=== PATIENT | male | born 1930 | race Caucasian/White ===

== ENCOUNTER 2018-05-09 13:59 | Emergency (ER) | payer MEDICARE, BC ==
[2015-01-25 15:56] VITALS: Wt 74.8 kg
[~2018-05-09 13:59] MED LIST: ACE3 PO; ASPI-764 PO; HYDR-385 PO; LISI-362 PO; TRAM-420 PO
--- NOTE | 2018-05-09 14:13 | ER Report ---
History and Physical Time Seen By MD: 14:11 HPI/ROS CHIEF COMPLAINT: Passing out HISTORY OF PRESENT ILLNESS: This is an 87-year-old male who presents to the emergency department for 2 syncopal episodes today. Patient states that around 8:00 this morning while he was working in his shop, he felt a little lightheaded and dizzy, laid down on the floor states he "passed out while laying on the floor" then came to shortly after and a backup felt okay and went back to working in his wood shop. Roughly an hour later was inside drinking some coffee and had another syncopal episode. Did not fall. Was sitting in his chair. No seizure activity. No headaches. No nausea or vomiting. No fevers or chills. No chest pain or shortness of breath. No other complaints. No palpitations. REVIEW OF SYSTEMS: Constitutional: No fever, no chills. Eyes: No discharge. ENT: No sore throat. Cardiovascular: No chest pain, no palpitations. Respiratory: No cough, no shortness of breath. Gastrointestinal: No abdominal pain, no vomiting. Genitourinary: No hematuria. Musculoskeletal: No back pain. Skin: No rashes. Neurological: As above. Allergies: Coded Allergies: morphine (Unverified Allergy, Severe, RASH AND PASSED OUT, "THEY HAD TO REVIVE ME", 02/27/15) Home Meds Active Scripts Acetaminophen/Codeine (TYLENOL #3 (OR EQUIV)) 1 Ea Tab, 1-2 EA PO Q4H PRN for PAIN, #30 TAB Prov:MARION ABARCA MD 02/28/15 Tramadol Hcl (TRAMADOL HCL) 50 Mg Tablet, 50-100 MG PO Q4-6H for PAIN, #30 MG TAKE ONE TO TWO TABLETS BY MOUTH EVERY FOUR TO SIX HOURS NEEDED Prov:DANNA BERNAL MD 02/27/15 Aspirin (ASPIRIN EC) 325 Mg Tabec, 325 MG PO QDAY, #30 TAB Prov:VJ JUAN MD 01/27/15 Past Medical/Surgical History The patient has a past medical and surgical history of hypertension, pancreatitis, cholecystectomy, arthritis, total left knee, prosthetic left eye, eye surgery. Reviewed Nurses Notes: Yes Hx Smoking: No Smoking Status: Never Smoker Exposure to Second Hand Smoke?: No Hx Substance Use Disorder: No Hx Alcohol Use: No Constitutional Vital Sign - Last 24 Hours 05/09/18 05/09/18 05/09/18 05/09/18 14:10 14:40 14:45 15:06 Temp 98.2 Pulse 100 67 95 96 Resp 18 B/P (MAP) 167/108 156/98 (117) 148/98 (115) 155/99 (117) Pulse Ox 92 O2 Delivery Room Air 05/09/18 05/09/18 15:15 16:15 Pulse 79 77 Resp 18 Pulse Ox 90 90 Physical Exam General Appearance: The patient is alert, has no immediate need for airway protection and no signs of toxicity. Eyes: Pupils equal and round no pallor or injection. EOM intact to right eye, prosthesis to left eye. No nystagmus this to right eye. ENT, Mouth: Mucous membranes are moist. Respiratory: There are no retractions, lungs are clear to auscultation. Cardiovascular: Regular rate and rhythm, no murmurs, clicks or rubs. Gastrointestinal: Abdomen is soft and non tender, no masses, bowel sounds normal. Neurological: Alert and oriented 4. Moving all extremities. Following all commands. No focal neuro deficits. Skin: Warm and dry, no rashes. Musculoskeletal: Neck is supple non tender. Extremities are nontender, nonswollen and have full range of motion. DIFFERENTIAL DIAGNOSIS: After history and physical exam differential diagnosis was considered for syncope including but not limited to vasovagal syncope, arrhythmia, dehydration, and blood loss. Medical Decision Making Data Points Result Diagram: 05/09/18 1426 05/09/18 1426 Laboratory Hematology Test 05/09/18 14:26 05/09/18 14:34 Red Blood Count 5.86 M/uL (4.00-5.60) Mean Corpuscular Volume 88.4 fL (80.0-96.0) Mean Corpuscular Hemoglobin 29.9 pg (26.0-33.0) Mean Corpuscular Hemoglobin Concent 33.8 g/dL (32.0-36.0) Red Cell Distribution Width 14.0 % (11.5-14.5) Mean Platelet Volume 8.7 fL (7.2-11.1) Neutrophils (%) (Auto) 84.7 % (39.4-72.5) Lymphocytes (%) (Auto) 8.8 % (17.6-49.6) Monocytes (%) (Auto) 5.5 % (4.1-12.4) Eosinophils (%) (Auto) 0.5 % (0.4-6.7) Basophils (%) (Auto) 0.5 % (0.3-1.4) Nucleated RBC Relative Count (auto) 0.1 /100WBC Neutrophils # (Auto) 7.4 K/uL (2.0-7.4) Lymphocytes # (Auto) 0.8 K/uL (1.3-3.6) Monocytes # (Auto) 0.5 K/uL (0.3-1.0) Eosinophils # (Auto) 0.0 K/uL (0.0-0.5) Basophils # (Auto) 0.0 K/uL (0.0-0.1) Nucleated RBC Absolute Count (auto) 0.01 K/uL Sodium Level 137 mmol/L (137-145) Potassium Level 4.1 mmol/L (3.5-5.0) Chloride Level 104 mmol/L (98-107) Carbon Dioxide Level 26 mmol/L (22-30) Blood Urea Nitrogen 21 mg/dl (9-21) Creatinine 1.30 mg/dl (0.66-1.25) Glomerular Filtration Rate Calc 52.5 Random Glucose 174 mg/dl (75-110) Calcium Level 9.4 mg/dl (8.4-10.2) Total Bilirubin 0.6 mg/dl (0.2-1.3) Aspartate Amino Transf (AST/SGOT) 22 U/L (0-35) Alanine Aminotransferase (ALT/SGPT) 23 U/L (0-56) Alkaline Phosphatase 81 U/L (0-126) Troponin I < 0.012 ng/ml Total Protein 7.3 g/dl (6.3-8.2) Albumin 3.9 g/dl (3.5-5.0) Urine Color Straw Urine Clarity Clear Urine pH 6.0 pH (4.8-9.5) Urine Specific [place] 1.006 Urine Protein Negative mg/dL (NEGATIVE) Urine Glucose (UA) Negative mg/dL (NEGATIVE) Urine Ketones Negative mg/dL (NEGATIVE) Urine Blood Negative (NEGATIVE) Urine Nitrite Negative (NEGATIVE) Urine Bilirubin Negative (NEGATIVE) Urine Urobilinogen Negative mg/dL (0.2-1.9) Urine Leukocyte Esterase Negative (NEGATIVE) Urine RBC None /HPF (0-2/HPF) Urine WBC <1 /HPF (0-5/HPF) Urine Squamous Epithelial Cells None /LPF (</=FEW) Urine Bacteria Negative /HPF (NONE-FEW) Urine Mucus None /HPF (NONE-FEW) Chemistry Test 05/09/18 14:26 05/09/18 14:34 White Blood Count 8.8 k/uL (4.5-11.0) Red Blood Count 5.86 M/uL (4.00-5.60) Hemoglobin 17.5 g/dL (14.0-18.0) Hematocrit 51.9 % (42.0-52.0) Mean Corpuscular Volume 88.4 fL (80.0-96.0) Mean Corpuscular Hemoglobin 29.9 pg (26.0-33.0) Mean Corpuscular Hemoglobin Concent 33.8 g/dL (32.0-36.0) Red Cell Distribution Width 14.0 % (11.5-14.5) Platelet Count 193 K/uL (150-450) Mean Platelet Volume 8.7 fL (7.2-11.1) Neutrophils (%) (Auto) 84.7 % (39.4-72.5) Lymphocytes (%) (Auto) 8.8 % (17.6-49.6) Monocytes (%) (Auto) 5.5 % (4.1-12.4) Eosinophils (%) (Auto) 0.5 % (0.4-6.7) Basophils (%) (Auto) 0.5 % (0.3-1.4) Nucleated RBC Relative Count (auto) 0.1 /100WBC Neutrophils # (Auto) 7.4 K/uL (2.0-7.4) Lymphocytes # (Auto) 0.8 K/uL (1.3-3.6) Monocytes # (Auto) 0.5 K/uL (0.3-1.0) Eosinophils # (Auto) 0.0 K/uL (0.0-0.5) Basophils # (Auto) 0.0 K/uL (0.0-0.1) Nucleated RBC Absolute Count (auto) 0.01 K/uL Glomerular Filtration Rate Calc 52.5 Calcium Level 9.4 mg/dl (8.4-10.2) Total Bilirubin 0.6 mg/dl (0.2-1.3) Aspartate Amino Transf (AST/SGOT) 22 U/L (0-35) Alanine Aminotransferase (ALT/SGPT) 23 U/L (0-56) Alkaline Phosphatase 81 U/L (0-126) Troponin I < 0.012 ng/ml Total Protein 7.3 g/dl (6.3-8.2) Albumin 3.9 g/dl (3.5-5.0) Urine Color Straw Urine Clarity Clear Urine pH 6.0 pH (4.8-9.5) Urine Specific [place] 1.006 Urine Protein Negative mg/dL (NEGATIVE) Urine Glucose (UA) Negative mg/dL (NEGATIVE) Urine Ketones Negative mg/dL (NEGATIVE) Urine Blood Negative (NEGATIVE) Urine Nitrite Negative (NEGATIVE) Urine Bilirubin Negative (NEGATIVE) Urine Urobilinogen Negative mg/dL (0.2-1.9) Urine Leukocyte Esterase Negative (NEGATIVE) Urine RBC None /HPF (0-2/HPF) Urine WBC <1 /HPF (0-5/HPF) Urine Squamous Epithelial Cells None /LPF (</=FEW) Urine Bacteria Negative /HPF (NONE-FEW) Urine Mucus None /HPF (NONE-FEW) Urinalysis Test 05/09/18 14:34 Urine Color Straw Urine Clarity Clear Urine pH 6.0 pH (4.8-9.5) Urine Specific [place] 1.006 Urine Protein Negative mg/dL (NEGATIVE) Urine Glucose (UA) Negative mg/dL (NEGATIVE) Urine Ketones Negative mg/dL (NEGATIVE) Urine Blood Negative (NEGATIVE) Urine Nitrite Negative (NEGATIVE) Urine Bilirubin Negative (NEGATIVE) Urine Urobilinogen Negative mg/dL (0.2-1.9) Urine Leukocyte Esterase Negative (NEGATIVE) Urine RBC None /HPF (0-2/HPF) Urine WBC <1 /HPF (0-5/HPF) Urine Squamous Epithelial Cells None /LPF (</=FEW) Urine Bacteria Negative /HPF (NONE-FEW) Urine Mucus None /HPF (NONE-FEW) EKG/Imaging EKG Interpretation 12 lead EKG: Tired EKG 1440. Rhythm: Sinus rhythm, ventricular rate 84 bpm. Sinus arrhythmia. [place]: normal QRS: normal ST segments: No ST depression or elevation identified. Incomplete right bundle branch block, inverted T-wave in V2, V3. No previous EKGs for comparison. Imaging 2 VIEWS CHEST INDICATION: Syncope. COMPARISON: 01/19/2015. FINDINGS: Cardiomediastinal silhouette and pulmonary vessels within normal limits. There is no focal infiltrate or lobar consolidation. There is no pneumothorax or pleural effusion. No nodule. Upper abdomen is unremarkable. Small surgical clips seen in the right upper abdomen. No acute bony abnormality. Stable mild compression of a vertebral body at the thoracolumbar junction. IMPRESSION: 1. No acute cardiopulmonary process. Report Dictated By: Narciso Nolasco at 05/09/2018 3:07 PM Report E-Signed By: Narciso Nolasco at 05/09/2018 3:08 PM [id number] CT Head without contrast Indication: Syncope possible hit head. Comparison: None available Technique: Axial CT images were obtained through the brain from the skull base to the vertex without administration of IV contrast. Reformatted coronal and sagittal images were also obtained. One of the following dose optimization techniques was utilized in the performance of this exam: automated exposure control; adjustment of the mA and/or kV according to the patient's size; or use of an iterative reconstruction technique. Specific details can be referenced in the facility's radiology CT exam operational policy. Findings: No evidence of mass, mass effect, or midline shift. No acute intracranial hemorrhage or acute territorial infarction. No extra-axial fluid collection or hydrocephalus. Age-related cerebral atrophy. Periventricular white matter ischemic changes consistent small vessel disease. Lira/white matter differentiation appears normal. Mild bilateral internal carotid artery calcifications. Bony structures show no fractures or lesions. Left globe prosthesis is present. The visualized paranasal sinuses and mastoid air cells are clear. IMPRESSION: 1. Senescent changes without acute abnormality. Report Dictated By: Narciso Nolasco at 05/09/2018 3:56 PM Report E-Signed By: Narciso Nolasco at 05/09/2018 4:01 PM WSN:[id number] ED Course/Re-evaluation Clinical Indication for ER IV: Hydration, IV Access ED Course The patient was admitted to room. History and physical obtained. Differential diagnoses were considered. An IV was started. A CBC, CMP, troponin were obtained. A 500 mL normal saline bolus was given. Lab studies unremarkable. Marika HUERTAS I did review the results with the patient and his family. A two-view chest x-ray was negative for any acute cardiopulmonary process. A head CT was negative for any intracranial abnormalities. Right shoulder was negative for any acute abnormalities. I reviewed all these imaging results with the patient. I did tell the patient I don't have a clear examination is why he is having the syncopal episodes, I did tell him I was concerned that he had 2 within such a short period of time, therefore I did place patient on a Holter monitor recommended following up with his primary care provider within 5 days for reevaluation. Patient expressed understanding and was discharged home. Patient has no other questions or concerns. A shunt had no syncopal events while in the emergency department. Patient states he felt "okay" during his visit. Patient was asymptomatic during orthostatic vital signs. 05/09/2018 2:55:09 pm , positive for orthostatic vital signs, asymptomatic during assessment and vitals. 05/09/2018 3:27:06 pm going to review the results with the patient, after more lengthy discussion, he states that he didn't think that he hit his head however he is not entirely sure, his [id number] thought that he did and he does have a very small contusion to his forehead. I did recommend a CT of the brain, the patient has agreed. Patient also states that he injured his right shoulder about 2 months ago and has had chronic pain since then we will x-ray the right shoulder as well. Decision to Disposition Date: May 09, 2018 Decision to Disposition Time: 16:20 Depart Departure Latest Vital Signs Vital Signs Date Time Temp Pulse Resp B/P (MAP) Pulse Ox O2 Delivery O2 Flow Rate FiO2 05/09/18 16:15 77 90 05/09/18 15:15 18 05/09/18 15:06 155/99 (117) 05/09/18 14:10 98.2 Room Air Impression: Primary Impression: Syncope Condition: Improved Disposition: HOME OR SELF-CARE Referrals: POLY GARRIDO MD (PCP) 5 Days Patient Instructions: Exercises for Shoulder Abduction and Adduction (ED), Exercises for Shoulder Flexion and Extension (ED), Near Syncope (ED), Syncope (ED) Additional Instructions: Your laboratory studies and urine look good today. EKG looks okay. Chest x-ray, shoulder and head CT looked okay. Wear the Holter monitor for 48 hours, return it as indicated by a cardiopulmonary. The results will go to Dr. Mabry, please call and follow-up with Dr. Laura early this coming week for reevaluation and Holter monitor results. Be sure to drink plenty of water. Get plenty of rest. Return to the emergency department for any other concerns or worsening symptoms. Problem Qualifiers Primary Impression: Syncope Syncope type: unspecified Qualified Codes: R55 - Syncope and collapse KIM SANCHEZ TRIAGE REGISTERED NURSE-BC May 09, 2018 14:13
[2018-05-09] MEDS ORDERED: NS(*) 0.9% 500 ML BAG 500 ML IV ONE (14:31)
[2018-05-09 14:43] LABS: PLATELET COUNT, AUTOMATED 193 K/uL (150-450)
--- NOTE | 2018-05-09 14:48 | EKG ---
FACILITY: [facility] - [place] PATIENT NAME: TELMA ANDRE : [id number] MR: [id number] V: [id number] EXAM DATE: ORDERING PHYSICIAN: KIM SANCHEZ TECHNOLOGIST: RICKEY Ibrahim Reason : SYNCOPE Blood Pressure : / mmHG Vent. Rate : 084 BPM Atrial Rate : 084 BPM P-R Int : 176 ms QRS Dur : 106 ms QT Int : 366 ms P-R-T Axes : 022 -55 025 degrees QTc Int : 432 ms Sinus rhythm with marked sinus arrhythmia with premature supraventricular complexes Incomplete right bundle branch block Left anterior fascicular block Minimal voltage criteria for LVH, may be normal variant ST and T wave abnormality, consider anterior ischemia Abnormal ECG No previous ECGs available Confirmed by Robby Watts ([id number]) on 05/09/2018 4:07:05 PM Referred By: Confirmed By:Robby Cox
[2018-05-09 15:06] VITALS: BP 155/99
--- NOTE | 2018-05-09 15:12 | RADIOLOGY IMAGING REPORT ---
FACILITY: [facility] - [place] PATIENT NAME: Franc Dove : 1930 MR: [id number] V: [id number] EXAM DATE: ORDERING PHYSICIAN: KIM SANCHEZ TECHNOLOGIST: Location: [facility] Patient: Franc Dove : 1930 Visit/Account:[id number] Date of Sevice: 05/09/2018 2 VIEWS CHEST INDICATION: Syncope. COMPARISON: 01/19/2015. FINDINGS: Cardiomediastinal silhouette and pulmonary vessels within normal limits. There is no focal infiltrate or lobar consolidation. There is no pneumothorax or pleural effusion. No nodule. Upper abdomen is unremarkable. Small surgical clips seen in the right upper abdomen. No acute bony ab normality. Stable mild compression of a vertebral body at the thoracolumbar junction. IMPRESSION: 1. No acute cardiopulmonary process. Report Dictated By: Narciso Nolasco at 05/09/2018 3:07 PM Report E-Signed By: Narciso Nolasco at 05/09/2018 3:08 PM WSN:[id number]
--- NOTE | 2018-05-09 16:04 | RADIOLOGY IMAGING REPORT ---
FACILITY: [facility] - [place] PATIENT NAME: Franc Dove : 1930 MR: [id number] V: [id number] EXAM DATE: ORDERING PHYSICIAN: KIM SANCHEZ TECHNOLOGIST: [place] [facility] [place] Patient: Franc Dove : 1930 Visit/Account:[id number] Date of Sevice: 05/09/2018 CT Head without contrast Indication: Syncope possible hit head. Comparison: None available Technique: Axial CT images were obtained through the brain from the skull base to the vertex without administration of IV contrast. Reformatted coronal and sagittal images were also obtained. One of the following dose optimization techniques was utilized in the performance of this exam: autom ated exposure control; adjustment of the mA and/or kV according to the patient's size; or use of an i terative reconstruction technique. Specific details can be referenced in the facility's radiology CT exam operational policy. Findings: No evidence of mass, mass effect, or midline shift. No acute intracranial hemorrhage or acute territorial infarction. No extra-axial fluid collection or hydrocephalus. Age-related cerebral atrophy. Periventricular white matter ischemic changes consistent small vessel disease. Lira/white matter differentiation appears n ormal. Mild bilateral internal carotid artery calcifications. Bony structures show no fractures or lesions. Left globe prosthesis is present. The visualized paranasal sinuses and mastoid air cells are clear. IMPRESSION: 1. Senescent changes without acute abnormality. Report Dictated By: Narciso Nolasco at 05/09/2018 3:56 PM Report E-Signed By: Narciso Nolasco at 05/09/2018 4:01 PM WSN:[id number]
--- NOTE | 2018-05-09 16:11 | RADIOLOGY IMAGING REPORT ---
FACILITY: [facility] PATIENT NAME: Franc Dove : 1930 MR: [id number] V: [id number] EXAM DATE: ORDERING PHYSICIAN: KIM SANCHEZ TECHNOLOGIST: Location: [facility] - [place] Patient: Franc Dove : 1930 Visit/Account:[id number] Date of Sevice: 05/09/2018 INDICATION: Right shoulder pain. DATE: 05/09/2018 4:01 PM. TECHNIQUE: SHOULDER MIN 2 VIEWS RIGHT COMPARISON: Chest radiographs of the same day FINDINGS: No glenohumeral dislocation. No fracture. No widening at the AC joint or the coracoclavicul ar interval. Glenohumeral degenerative findings are moderate as is acromioclavicular degenerative cricket nge. IMPRESSION: No acute osseous abnormality. Degenerative findings as noted. Report Dictated By: Garth Looney MD at 05/09/2018 4:01 PM Report E-Signed By: Garth Looney MD at 05/09/2018 4:07 PM WSN:[id number]
--- NOTE | 2018-05-11 16:40 | RT HOLTER TEST ---
FACILITY: [facility] PATIENT NAME: TELMA ANDRE : [id number] MR: [id number] V: [id number] EXAM DATE: ORDERING PHYSICIAN: KIM SANCHEZ TECHNOLOGIST: HEATHER Hook-up date: 2018-05-09 16:05:00 Duration: 46:57:00 Test Indications: CP Medications: DIARY NOT RETURNED [id number] QRS complexes 3746 Ventricular ectopics which represent 2 % of total QRS comp. 746 Supraventricular ectopics which represent <1 % of total QRS comp. * Paced QRS complexes which represent % of total QRS comp. VENTRICULAR ECTOPY 3529 Isolated 3 Bigeminal Cycles 107 Couplets 1 Runs 3 Beats in Runs 3 Beats LONGEST at 125 BPM at 19:46:35 2018-05-09 3 Beats FASTEST at 125 BPM at 19:46:35 2018-05-09 SUPRAVENTRICULAR ECTOPY 631 Isolated 31 Couplets 14 Runs 53 Beats in Runs 6 Beats LONGEST at 91 BPM at 03:35:12 2018-05-11 3 Beats FASTEST at 147 BPM at 11:47:29 2018-05-11 HEART RATES 41 MIN at 03:35:22 2018-05-11 66 AVG 126 MAX at 14:11:55 2018-05-10 LONGEST RR 1.896 secs at 02:12:33 2018-05-11 S-T LEVELS Channel 1 -12.800 mm MIN at 16:05:00 2018-05-09.800 mm MAX at 16:05:00 2018-05-09 Channel 3 -12.800 mm MIN at 16:05:00 2018-05-09.800 mm MAX at 16:05:00 2018-05-09 There were no reported symptoms during the test. The patient was predominantly in a sinus rhythm, bu t did have occasional ventricular ectopy and rare supraventricular ectopy (SVE). There were multiple short runs of SVE ranging from 3-6 beats and the rates ranged from 91 beats per minute (bpm) to 138bpm. Confirmed by APRIL MAGALLANES ([id number]) on 05/11/2018 4:40:21 PM Referred By: Overread By: APRIL MAGALLANES
== END 2018-05-09 16:30 | disposition home or self-care (01) ==
LOC: ER 14:41
DX: R55 Syncope and collapse (principal); I45.10 Unspecified right bundle-branch block; R94.31 Abnormal electrocardiogram [ECG] [EKG]
CPT/HCPCS: 70450; 71046; 73030; 81001; 84484; 85025; 93005; 93225; 96360; 99284; J7040; 82040; 82247; 82310; 82374; 82435; 82565; 82947; 84075; 84132; 84155; 84295; 84450; 84460; 84520

== ENCOUNTER → 2018-06-09 | Outpatient (CLI) | payer MEDICARE, BC ==
[2015-01-25 15:56] VITALS: BMI 23.4
== END ==
LOC: US 00:48
PROVIDERS: ATTEND Family Medicine
DX: R55 Syncope and collapse (principal)
CPT/HCPCS: 93306